=== PATIENT | male | born 1970 | race American Indian/Alaskan Native ===

== ENCOUNTER 2018-07-13 11:13 | Day surgery (SDC) | payer BC ==
[2018-07-07 08:09] VITALS: BMI 36.5
[2018-07-13 12:19] LABS: BASO # 0.02 K/mm3 (0.0-2.0); BASO % 0.3 % (0.0-3.0); EOS # 0.1 (0.0-0.7); GRAN # 4.2 (1.4-6.5); GRAN % 71.1 % (50.0-68.0); HEMOGLOBIN 12.8 g/dL (14.0-18.0); LYMPH # 1.1 (1.2-3.4); LYMPH % 18.1 % (22.0-35.0); MEAN CELL VOLUME 86.7 fl (80.0-105.0); MEAN CORPUSCULAR HEMOGLOBIN 27.8 pg (25.0-35.0); MEAN CORPUSCULAR HGB CONC 32.1 g/dl (31.0-37.0); MEAN PLATELET VOLUME 9.4 fl (7.0-11.0); MONO # 0.6 (0.1-0.6); MONO % 9.5 % (1.0-6.0); RBC 4.6 10^6/uL (3.5-6.1); RED CELL DISTRIBUTION WIDTH 12.7 % (11.5-14.5); WHITE BLOOD COUNT 5.9 10^3/uL (4.5-11.0)
[2018-07-13 12:23] LABS: INR 1.1; PROTHROMBIN TIME 12.7 SECONDS (9.4-12.5)
[2018-07-13 12:32] LABS: BLOOD UREA NITROGEN 15 mg/dL (7-21); GFR NON-AFRICAN AMERICAN > 60
[2018-07-13] MEDS ORDERED: Lidocaine 1% Inj (20ml) ONE (13:26)
[2018-07-13] MEDS ORDERED: Midazolam 2 MG/2 ML VIAL ONE (13:27)
[2018-07-13] MEDS ORDERED: Midazolam 2 MG/2 ML VIAL IVP ONE (13:30)
[2018-07-13] MEDS ORDERED: Oxycodone/Acetaminophen 5/325 mg Tab PO PRN (13:52)
[2018-07-13] MEDS ORDERED: Sodium Chloride 0.45% 1,000 ML IV SCH (14:00)
[2018-07-13 14:53] VITALS: BP 115/74; PULSE 80; RESP 20; TEMP 98
[2018-07-13 16:54] VITALS: O2SAT 98
--- NOTE | 2018-07-13 18:18 | CT ---
PROCEDURE: CT guided right ileo psoas biopsy HISTORY: Metastatic colon carcinoma. Right ileo psoas mass with increased activity on PET-CT. Evaluate for metastatic disease. PHYSICIAN(S): Harsh Atkinson MD. TECHNIQUE: The relative risks and indications of the procedure were explained to the patient and consent obtained. The patient was placed in a left decubitus position on the CT scanner and preliminary images through the lower abdomen obtained. Conscious sedation and monitoring were provided throughout the procedure by a nurse. There is a 7.5 cm low-attenuation mass involving the right ileo psoas muscle. The lateral aspect of this mass was extremely active on PET/CT imaging. A right posterior lateral approach was selected the area prepped and draped usual sterile fashion. Conscious sedation monitoring were provided throughout the procedure by a nurse. An AA 17 gauge needle was advanced into the 7.5 cm right ileo psoas mass. Its position was confirmed with CT. Multiple core biopsies were obtained. The patient tolerated the procedure well IMPRESSION: 1. CT-guided right ileo psoas mass biopsy as described above.
== END 2018-07-13 17:00 | disposition home or self-care (01) ==
LOC: SDS 11:13
PROVIDERS: ATTEND Radiology Vascular & Interventional Radiology
DX: C79.89 Secondary malignant neoplasm of other specified sites (principal); I10 Essential (primary) hypertension; Z85.038 Personal history of other malignant neoplasm of large intestine
CPT/HCPCS: 36415; 49180; 77012; 80048; 85025; 85610; 85730; 88305; 99152; 99153; J2250; J2405; J3010; J7030

== ENCOUNTER 2018-11-24 20:33 | Observation (INO) | payer BC ==
[2018-11-24 20:54] VITALS: BMI 36.2
[2018-11-24] MEDS ORDERED: Morphine 2 mg/ml ISec IVP STA ×2 (21:20→22:31)
--- NOTE | 2018-11-24 21:36 | ED PDOC ---
Arrival/HPI - General Historian: Patient, Spouse - History of Present Illness Narrative History of Present Illness (Text): 11/24/18 21:22 48 y/o male with PMH of colon CA (s/p partial colon resection, on chemo q3 weeks, right sided port) and HTN presents to the ED c/o LLQ abdominal pain x 1 day. Pain is sharp and constant with intermittent radiation to left flank. Last chemo 26 days ago, next session supposed to be last week, rescheduled to 11/30/18. Took hydrocodone last night with some relief. Associated diarrhea over the last few days, last full BM 11pm yesterday, soft, darker stools. Pt used enema today and has been having small bowel movements throughout the day. Also has had a mild intermittently productive cough over the last week. Associated inconsistent urinary flow and urinary frequency over the last 2 days. Denies fever, vomiting, headache, neck pain, back pain, headache, dizziness, chest pain, SOB, palpitations, hematuria, dysuria, testicular pain or swelling, or any other associated symptoms. Oncologist: Dr. Delaney PMD: Dr. Wilkinson <Kay Carl - Last Filed: 11/25/18 03:55> <Ross Coffman - Last Filed: 11/25/18 06:48> - General Chief Complaint: Abdominal Pain Time Seen by Provider: 11/24/18 20:41 Past Medical History - Provider Review Nursing Documentation Reviewed: Yes Primary Care Provider: Luke Wilkinson - Cardiac Hx Pacemaker: No - Neurological Hx Paralysis: No - Hematological/Oncological Hx Blood Transfusions: No Hx Blood Transfusion Reaction: No Hx Cancer: Yes Hx Chemotherapy: Yes - Musculoskeletal/Rheumatological Hx Musculoskeletal Disorders: No - Psychiatric Hx Emotional Abuse: No Hx Physical Abuse: No Hx Substance Use: No - Surgical History Other/Comment: Colon resection 2010. tumor removed from abdomen - Anesthesia Hx Anesthesia: Yes Hx Anesthesia Reactions: No Hx Malignant Hyperthermia: No - Suicidal Assessment Feels Threatened In Home Enviroment: No <Kay Carl - Last Filed: 11/25/18 03:55> Family/Social History - Physician Review Nursing Documentation Reviewed: Yes Family/Social History: No Known Family HX Smoking Status: Never Smoked Hx Alcohol Use: No Hx Substance Use: No <Kay Carl - Last Filed: 11/25/18 03:55> Allergies/Home Meds <Kay Carl - Last Filed: 11/25/18 03:55> <Ross Coffman - Last Filed: 11/25/18 06:48> Allergies/Adverse Reactions: Allergies Penicillins Allergy (Severe, Verified 11/24/18 20:54) RASH Home Medications: Home Meds Medication Instructions Recorded Confirmed Acetaminophen [Tylenol] 325 mg PO PRN PRN 07/07/18 07/07/18 Cyclobenzaprine [Cyclobenzaprine 10 mg PO HS 07/07/18 07/07/18 HCl] Hydrocodone/Ibuprofen [Hydrocodone 1 tab PO HS PRN 07/07/18 07/07/18 Bitartrate-Ibuprofen 7.5 mg-200 M] amLODIPine [Norvasc] 10 mg PO DAILY 07/07/18 07/07/18 Review of Systems - Review of Systems Constitutional: Normal. absent: Fatigue, Fevers Eyes: Normal. absent: Vision Changes ENT: Normal. absent: Sore Throat, Sinus Congestion Respiratory: Cough. absent: SOB Cardiovascular: Normal. absent: Chest Pain, Palpitations, Syncope Gastrointestinal: Abdominal Pain, Constipation, Diarrhea, Nausea. absent: Stool Changes, Vomiting, Appetite Changes, Hematochezia, Hematemesis Genitourinary Male: Frequency, Other (abnormal flow). absent: Dysuria Musculoskeletal: Normal. absent: Back Pain, Neck Pain Skin: Normal. absent: Rash Neurological: Normal. absent: Headache, Dizziness <Kay Carl - Last Filed: 11/25/18 03:55> Physical Exam Vital Signs Reviewed: Yes Vital Signs Temp Pulse Resp BP Pulse Ox 11/24/18 20:54 98.8 F 77 18 157/83 H 99 Temperature: Afebrile Blood Pressure: Normal Pulse: Regular Respiratory Rate: Normal Appearance: Positive for: Well-Appearing, Non-Toxic, Uncomfortable Pain Distress: Mild Mental Status: Positive for: Alert and Oriented X 3 - Systems Exam Head: Present: Atraumatic, Normocephalic Pupils: Present: PERRL Extroacular Muscles: Present: EOMI Conjunctiva: Present: Normal Mouth: Present: Moist Mucous Membranes Neck: Present: Normal Range of Motion. No: Meningeal Signs Respiratory/Chest: Present: Clear to Auscultation, Good Air Exchange. No: Respiratory Distress, Accessory Muscle Use Cardiovascular: Present: Regular Rate and Rhythm, Normal S1, S2, Peripheal Pulses Present Abdomen: Present: Tenderness (LLQ), Normal Bowel Sounds (hypoactive throughout). No: Distention, Peritoneal Signs Rectal: Present: Hemorrhoids (small nonthrombosed), Normal Rectal Tone. No: Occult Blood, Rectal Tenderness, Gross Blood Back: Present: Normal Inspection. No: CVA Tenderness Upper Extremity: Present: Normal Inspection, Normal ROM, NORMAL PULSES, Neurovascularly Intact, Capillary Refill < 2s. No: Cyanosis, Edema, Temperature Abnormalties Lower Extremity: Present: Normal Inspection, NORMAL PULSES, Normal ROM, Capillary Refill < 2 s. No: Edema, Temperature Abnormalties Neurological: Present: GCS=15, CN II-XII Intact, Speech Normal, Motor Func Grossly Intact, Normal Sensory Function, Gait Normal Skin: Present: Warm, Dry, Normal Color. No: Rashes Psychiatric: Present: Alert, Oriented x 3, Normal Insight, Normal Concentration, Normal Affect, Normal Mood <Kay Carl - Last Filed: 11/25/18 03:55> Vital Signs Temp Pulse Resp BP Pulse Ox 11/24/18 23:14 99.0 F 11/24/18 22:51 81 22 156/86 H 96 11/24/18 20:54 98.8 F 77 18 157/83 H 99 <Ross Coffman - Last Filed: 11/25/18 06:48> Medical Decision Making ED Course and Treatment: Initial Plan: * Labs * CXR * EKG * CT Abd/Pelvis with IV contrast * Morphine, Zofran EKG shows normal rate and rhythm with PVCS, no STEMI, nonspecific ST/T wave changes No comparison available 21:49 CBC reviewed, no leukocytosis. Mild anemia noted. 22:30 CMP unremarkable, troponin negative 00:53 CT shows left sided nephrolithiasis with hydronephrosis, right sided pneumonia, and colon malignancy with metastases to liver and retroperitoneum. Hemoccult negative on rectal exam, however limited secondary to small amount of stool in rectal vault. 01:[address] Tucker who accepted patient for inpatient remote telemetry admission with diagnosis of pneumonia and left sided obstructing nephrolithiasis, as well as colon cancer with liver and retroperitoneal metastases. Pt updated with change in disposition. Resting comfortably in stretcher with no complaints at this time, vital signs stable. ID and urology consults, pain medication, diet, and antibiotics ordered as requested by admitting attending. Pending urine. - Lab Interpretations Lab Results: 11/24/18 21:42 11/24/18 21:42 Lab Results 11/24/18 21:42: Sodium 138, Potassium 4.1, Chloride 102, Carbon Dioxide 26, Anion Gap 14, BUN 15, Creatinine 1.5, Est GFR ( Amer) 60, Est GFR (Non-Af Amer) 50, Random Glucose 103, Calcium 9.4, Total Bilirubin 0.9, AST 27, ALT 12, Alkaline Phosphatase 80, Lactate Dehydrogenase 418, Total Creatine Kinase 126, Troponin I < 0.01, Total Protein 8.6 H, Albumin 4.1, Globulin 4.4, [place] min/Globulin Ratio 0.9 L, Lipase 141 11/24/18 21:42: PT 13.8 H, INR 1.24, APTT 36.2 11/24/18 21:42: WBC 8.3 D, RBC 4.43, Hgb 12.1 L, Hct 37.4 L, MCV 84.4, MCH 27.3, MCHC 32.4, RDW 14.0, Plt Count 322, MPV 9.4, Neut % (Auto) 75.9 H, Lymph % (Auto) 12.5 L, Morton % (Auto) 10.9 H, Eos % (Auto) 0.5 L, Baso % (Auto) 0.2, Lymph # (Auto) 1.0 L, Morton # (Auto) 0.9 H, Eos # (Auto) 0.0, Baso # (Auto) 0.02, Absolute Neuts (auto) 6.33 I have reviewed the lab results: Yes Interpretation: All labs normal - RAD Interpretation Narrative RAD Interpretations (Text): EXAM: CT Abdomen and Pelvis with IV contrast FINDINGS: LUNG BASES: Posterior right lower lobe pneumonic consolidation is noted. No pleural effusions are seen. LIVER: A large 12.6 x 12.0 x 9.3 cm hypodense mass with irregular frond-like margins is seen in the right hepatic lobe compatible with advanced malignancy. GALLBLADDER AND BILE DUCTS: The gallbladder is noted to abut the hepatic malignancy. No radioopaque gallstones are seen. No biliary ductal dilatation is evident. PANCREAS: Unremarkable. SPLEEN: Unremarkable. ADRENAL GLANDS: Unremarkable. KIDNEYS, URETERS, AND BLADDER: The kidneys appear within normal limits. There is no hydronephrosis or hydroureter. A 7.1 mm obstructing calculus is lodged at the left UVJ with associated moderate left hydroureter and left hydronephrosis noted. The urinary bladder appears normal in size and configuration. Subtle perivesical haziness is noted thought compatible with cystitis. STOMACH AND BOWEL: Unremarkable appearance of the stomach. There is a given history of previous known colonic carcinoma with surgical resection; thought to be of the right hemicolon. No evidence of bowel obstruction. There is mucosal wall thickening of the small intestine with fluid in the lumen compatible with diffuse enteritis. Infectious or inflammatory etiologies are thought most likely. APPENDIX: No evidence of acute appendicitis on CT examination. PERITONEUM: No free fluid. No free air. A 6.9 x 4.8 cm ovoid shaped hypodense mass is seen along the lateral right abdominal wall compatible with malignancy. An additional 6.9 x 7.8 cm hypodense mass with irregular margins is seen in the posterior right retroperitoneal region invading the psoas muscle compatible with malignancy. An additional 7.0 x 7.0 cm hypodense malignant masses seen along the inner right pelvic wall. These masses are compatible with known colonic carcinoma for which the patient has been receiving chemotherapy. LYMPH NODES: No lymphadenopathy is evident. REPRODUCTIVE: Unremarkable as visualized. VASCULATURE: No evidence of abdominal aortic aneurysm. BONES: No aggressive appearing osseous lesion. No acute osseous pathology evident. There is evidence of advanced degenerative disc disease at L2-3, L4-5, L5-S1. IMPRESSION: 1. Multiple right lateral abdominal wall malignancy; also located along the inner right pelvic wall. There is known previous colon carcinoma with surgical resection of the right hemicolon. 2. Large hepatic metastatic malignancy as described above. 3. Diffuse enteritis. 4. 7.1 mm obstructing calculus at the left UVJ with associated moderate left hydronephrosis/hydroureter. 5. Posterior right lower lobe pneumonic consolidation. 6. Subtle perivesical haziness thought indicative of cystitis. 7. Advanced degenerative disc disease at L2-3, L4-5, L5-S1. Electronically signed on November 24, 2018 11:43:00 PM EDT by: Ronald Rice M.D., M.B.A., Certified By [employer] Trained MRI and CT Specialist Radiology Orders: 11/24/18 21:00 CHEST PORTABLE [RAD] Stat 11/24/18 21:21 ABD & PELVIS IV CONTRAST ONLY [CT] Stat Industrial Workers: Radiologist - EKG Interpretation EKG Interpretation (Text): 11/24/18 22:09 Rate 82; NSR with PVCs and fusion complexes; no STEMI, nonspecific ST/T wave changes Interpreted by ED Physician: Yes Type: 12 lead EKG - Medication Orders Current Medication Orders: Morphine Sulfate (Morphine) 2 mg IVP STAT STA Stop: 11/24/18 21:21 Ondansetron HCl (Zofran Inj) 4 mg IVP STAT STA Stop: 11/24/18 21:22 <Kay aCrl - Last Filed: 11/25/18 03:55> - Lab Interpretations Lab Results: PT 13.8 SECONDS (9.4-12.5) H 11/24/18 21:42 INR 1.24 11/24/18 21:42 APTT 36.2 Seconds (26.9-38.3) 11/24/18 21:42 Troponin I < 0.01 ng/mL 11/24/18 21:42 Total Bilirubin 0.9 mg/dL (0.2-1.3) 11/24/18 21:42 AST 27 U/L (17-59) 11/24/18 21:42 ALT 12 U/L (7-56) 11/24/18 21:42 Alkaline Phosphatase 80 U/L (38-126) 11/24/18 21:42 Total Protein 8.6 g/dL (5.8-8.3) H 11/24/18 21:42 Albumin 4.1 g/dL (3.0-4.8) 11/24/18 21:42 Globulin 4.4 gm/dL 11/24/18 21:42 Albumin/Globulin Ratio 0.9 (1.1-1.8) L 11/24/18 21:42 Lipase 141 U/L (23-300) 11/24/18 21:42 - RAD Interpretation Radiology Orders: 11/24/18 21:00 CHEST PORTABLE [RAD] Stat 11/24/18 21:21 ABD & PELVIS IV CONTRAST ONLY [CT] Stat - Medication Orders Current Medication Orders: Discontinued Medications Morphine Sulfate (Morphine) 2 mg IVP STAT STA Stop: 11/24/18 21:21 Last Admin: 11/24/18 21:59 Dose: 2 mg MAR Pain Assessment Document 11/24/18 21:59 SS (Rec: 11/24/18 22:00 SS [id number]) Pain Reassessment Is this a pain reassessment? No IVP Administration Document 11/24/18 21:59 SS (Rec: 11/24/18 22:00 [place] [id number]) Charges for Administration # of IVP Administrations 1 Morphine Sulfate (Morphine) 2 mg IVP STAT STA Stop: 11/24/18 22:32 Last Admin: 11/24/18 22:51 Dose: 2 mg MAR Pain Assessment Document 11/24/18 22:51 SS (Rec: 11/24/18 22:51 SS [place] [id number]) Pain Reassessment Is this a pain reassessment? Yes Sleep Is patient sleeping during reassessment? No Presence of Pain Presence of Pain Yes Location Upper or Lower Lower Pain Location Body Site Abdomen IVP Administration Document 11/24/18 22:51 SS (Rec: 11/24/18 22:51 SS [place] [id number]) Charges for Administration # of IVP Administrations 1 Ondansetron HCl (Zofran Inj) 4 mg IVP STAT STA Stop: 11/24/18 21:22 Last Admin: 11/24/18 22:00 Dose: 4 mg IVP Administration Document 11/24/18 22:00 SS (Rec: 11/24/18 22:00 [id number] Charges for Administration # of IVP Administrations 1 <Ross Coffman - Last Filed: 11/25/18 06:48> - PA / STUDIO CONTROL OPERATOR / Resident Statement CAROLYNE has reviewed & agrees with the documentation as recorded. CAROLYNE has examined the patient and agrees with the treatment plan. <Ross Coffman - Last Filed: 11/25/18 06:48> Disposition/Present on Arrival - Present on Arrival Any Indicators Present on Arrival: No History of DVT/PE: No History of Uncontrolled Diabetes: No Urinary Catheter: No History of Decub. Ulcer: No History Surgical Site Infection Following: None - Disposition Have Diagnosis and Disposition been Completed?: Yes Disposition Time: 01:00 <Kay Carl - Last Filed: 11/25/18 03:55> <Ross Coffman - Last Filed: 11/25/18 06:48> - Disposition Diagnosis: Pneumonia, Nephrolithiasis, Hydronephrosis, Colon cancer, Liver mass, Retrope ritoneal mass Disposition: HOSPITALIZED Patient Problems: Current Active Problems Problem Status Onset Colon cancer Acute Hydronephrosis Acute Liver mass Acute Nephrolithiasis Acute Pneumonia Acute Retroperitoneal mass Acute Condition: STABLE
[2018-11-24 21:46] LABS: BASO # 0.02 K/mm3 (0.0-2.0); BASO % 0.2 % (0.0-3.0); EOS % 0.5 % (1.5-5.0); HEMOGLOBIN 12.1 g/dL (14.0-18.0); LYMPH % 12.5 % (22.0-35.0); MEAN CELL VOLUME 84.4 fl (80.0-105.0); MEAN CORPUSCULAR HEMOGLOBIN 27.3 pg (25.0-35.0); MEAN CORPUSCULAR HGB CONC 32.4 g/dl (31.0-37.0); MEAN PLATELET VOLUME 9.4 fl (7.0-11.0); MONO # 0.9 (0.1-0.6); MONO % 10.9 % (1.0-6.0); RBC 4.43 10^6/uL (3.5-6.1); WHITE BLOOD COUNT 8.3 10^3/uL (4.5-11.0)
[2018-11-24 21:55] LABS: INR 1.24; PARTIAL THROMBOPLASTIN TIME 36.2 Seconds (26.9-38.3); PROTHROMBIN TIME 13.8 SECONDS (9.4-12.5)
[2018-11-24 22:00] LABS: ALB/GLOB RATIO 0.9 (1.1-1.8); ALBUMIN 4.1 g/dL (3.0-4.8); ALT/SGPT 12 U/L (7-56); AST/SGOT 27 U/L (17-59); BLOOD UREA NITROGEN 15 mg/dL (7-21); CALCIUM 9.4 mg/dL (8.4-10.5); GFR NON-AFRICAN AMERICAN 50; LIPASE 141 U/L (23-300)
[2018-11-24 22:11] LABS: TROPONIN I < 0.01 ng/mL
[2018-11-24] MEDS ORDERED: Iohexol 350 MG/100 ML VIAL ONE (22:27)
[2018-11-25] MEDS ORDERED: Morphine 2 mg/ml ISec IVP STA (00:05)
[2018-11-25] MEDS ORDERED: levoFLOXacin 750 MG TAB PO STA (00:06)
[2018-11-25] MEDS ORDERED: levoFLOXacin 750 mg in D5W 150 ML BAG IVPB STA (00:45)
[2018-11-25] MEDS ORDERED: Oxycodone/Acetaminophen 5/325 mg Tab PO PRN (01:08)
[2018-11-25] MEDS ORDERED: Sodium Chloride 0.9% 1,000 ML IV STA (01:08)
[2018-11-25 08:34] VITALS: RESP 20
[2018-11-25 09:37] VITALS: BP 123/73; TEMP 98; O2SAT 97
--- NOTE | 2018-11-25 11:25 | RAD ---
Date of service: 11/24/2018 HISTORY: abd pain COMPARISON: No prior. TECHNIQUE: 1 view obtained. FINDINGS: LUNGS: No active pulmonary disease. PLEURA: No significant pleural effusion identified, no pneumothorax apparent. CARDIOVASCULAR: No aortic atherosclerotic calcification present. Normal cardiac size. No pulmonary vascular congestion. OSSEOUS STRUCTURES: Mild spinal degenerative changes. VISUALIZED UPPER ABDOMEN: Normal. OTHER FINDINGS: Right internal jugular access chest port with tip in the distal SVC IMPRESSION: No active disease.
--- NOTE | 2018-11-25 11:52 | CARD ---
APPROVED REPORT Date of service: 11/24/2018 EKG Measurement Heart [id number] CT 130P-4 [id number] <Conclusion> Sinus rhythm with frequent and consecutive premature ventricular complexes and fusion complexes Abnormal ECG
--- NOTE | 2018-11-25 12:13 | CT ---
Date of service: 11/24/2018 PROCEDURE: CT Abdomen and Pelvis with contrast HISTORY: LLQ pain, nausea, h/o Colon CA s/p resection COMPARISON: CT scan of the chest, abdomen and pelvis dated 08/10/2013 TECHNIQUE: Contrast dose: 100 mL Omnipaque 350 Radiation dose: Total exam DLP = 1245.03 mGy-cm. This CT exam was performed using one or more of the following dose reduction techniques: Automated exposure control, adjustment of the mA and/or kV according to patient size, and/or use of iterative reconstruction technique. FINDINGS: LOWER THORAX: Partially imaged chest port catheter with tip in the distal SVC. Bibasilar atelectasis. Punctate left lower lobe calcified granuloma. LIVER: Hepatic steatosis. Large lobular hypodense mass occupying much of the right hepatic lobe measuring 13.7 x 8.9 x 12.3 cm and is inseparable from the gallbladder. Punctate foci of calcification seen scattered in the mass. Additional 6.2 x 2.6 x 4.9 cm low-density mass along the margin of the inferior right hepatic lobe laterally. No gross lesion or ductal dilatation. GALLBLADDER AND BILE DUCTS: Unremarkable. PANCREAS: Unremarkable. No gross lesion or ductal dilatation. SPLEEN: Unremarkable. ADRENALS: Unremarkable. No mass. KIDNEYS AND URETERS: Left ureterovesicular junction 7.1 mm calculus causing moderate left hydroureteronephrosis. No solid mass. VASCULATURE: Unremarkable. No aortic aneurysm. No aortic atherosclerotic calcification or mural plaque present. BOWEL: Prior right hemicolectomy. No obstruction. No gross mural thickening. APPENDIX: Prior appendectomy. PERITONEUM: 7.8 x 7.0 x 11.0 cm low-density mass within the right psoas muscle with foci of calcification. Additional low-density area in the right pericolic gutter measuring approximately 5.9 x 4.6 x 6.5 cm. Additional low density in the right pericolic gutter almost in contiguity with right psoas mass measures 7.3 x 5.8 x 8.7 cm and also contains foci of calcification. Small right fat containing inguinal hernia. No free fluid. No free air. LYMPH NODES: Unremarkable. No enlarged lymph nodes. BLADDER: Unremarkable. REPRODUCTIVE: Unremarkable. BONES: Multilevel spinal degenerative changes. No acute fracture. OTHER FINDINGS: None. IMPRESSION: Left ureterovesicular junction 7.1 mm calculus causing moderate left hydroureteronephrosis. Large 13.7 x 8.9 x 12.3 cm right hepatic lobe mass/metastasis inseparable from the gallbladder for which gallbladder invasion cannot be excluded. Low-density masses in the right psoas and right pericolic gutter as above described. Foci of calcification within all masses raise the possibility of mucinous type adenocarcinoma. Correlate with known pathology from patient's history of colon cancer.
[2018-11-25] MEDS ORDERED: Meropenem IV 1 gm in NS 1 GM/50 ML BAG IVPB SCH (14:00)
--- NOTE | 2018-11-25 15:33 | CT ---
Date of service: 11/25/2018 PROCEDURE: CT Chest, Abdomen and Pelvis without intravenous contrast HISTORY: re-eval PNA and nephrolithiasis COMPARISON: CT scan of the abdomen pelvis performed 11/24/2018; CT scan of the chest, abdomen pelvis dated 08/10/2013. TECHNIQUE: Radiation dose: Total exam DLP = 927.81 mGy-cm. This CT exam was performed using one or more of the following dose reduction techniques: Automated exposure control, adjustment of the mA and/or kV according to patient size, and/or use of iterative reconstruction technique. FINDINGS: visualized thyroid is unremarkable. Heart size is normal. Coronary arterial and valvular calcifications are present. The lungs are clear without focal consolidation, pleural effusion or suspicious pulmonary nodule/mass. Left lower lobe subsegmental linear atelectasis/scarring is present. No mediastinal, hilar or axillary adenopathy is present. Right internal jugular access chest port is present with catheter tip in distal SVC. There is diffuse hepatic steatosis. Delayed left nephrogram is present. Hydroureteronephrosis has resolved due to passage of the previously seen left ureterovesicular junction calculus. Excreted intravenous contrast is seen within both renal collecting systems. Large low-density hepatic mass, right pericolic gutter masses and right psoas muscle mass are unchanged. Remainder of the findings are unchanged. IMPRESSION: No evidence of pneumonia. Resolution of left hydroureteronephrosis due to passage of ureterovesicular junction calculus. Delayed left nephrogram likely due to transiently impaired unilateral renal function from obstructive calculus. No other significant interval change.
--- NOTE | 2018-11-25 16:14 | HP ---
DATE OF EXAM: 11/25/2018 HISTORY OF PRESENT ILLNESS: The patient is 48-year-old male, who came to emergency room because of increasing left flank pain. He states that he is having pain for last two days, but got worse last night, then prompted him to come to emergency room. The patient states pain was colicky and he ended up passing stone this morning, since then he feels much relief. The patient does complain of intermittent diarrhea and that he attributes to chemotherapy that he is recently receiving for recurrent colon cancer. Denies any fever or chills. No nausea or vomiting. Does feel hungry. PAST MEDICAL HISTORY: Significant for colon cancer that was diagnosed in 2010. The patient has colon resection. He states that 17 cm tumor was removed. He has been on chemotherapy since then. He states that he had surgery in 2010, but then he has recurrence of his tumor and has been getting chemotherapy for the last few weeks. He does have history of hypertension, intermittent diarrhea, and chronic anemia. ALLERGIES: HE IS ALLERGIC TO PENICILLIN. MEDICATIONS: At home, he is on cyclobenzaprine, ibuprofen, hydrocodone, amlodipine, and acetaminophen. SOCIAL HISTORY: He is , lives with his family. Denies smoking, drinking, or alcohol use. PHYSICAL EXAMINATION: GENERAL: He is awake and alert; able to communicate. VITAL SIGNS: He is afebrile, pulse 97, respiration 20, and blood pressure 123/73. LUNGS: Bilateral fair airflow. No rhonchi or crackle. HEART: S1 and S2 audible. ABDOMEN: Soft and nontender. No rebound. No guarding. NEUROLOGIC: He is awake and alert; able to communicate. LABORATORY DATA: WBC is 8.3, hemoglobin 10, hematocrit 37, and platelet 322. PT 13.8 and INR 1.24. Chemistry; sodium 138, potassium 4.1, chloride 102, CO2 of 26, BUN 15, creatinine 1.5, blood sugar 103, and troponin 0.01. He had CT of the abdomen and pelvis done that is pending; however, the patient passed 7 mm stone this morning. IMPRESSION: He has been feeling well right now. He has no cough. No congestion. PLAN: I will order for CT of the abdomen and pelvis and also CT of the chest. If there is no infiltrate and the patient has passed the stone, then he can be discharged later on today. Mikhail Tucker MD [facility] # [id number]
[2018-11-25 18:21] VITALS: PULSE 83
--- NOTE | 2018-11-28 06:32 | CON ---
DATE: 11/25/2018 CHIEF COMPLAINT: Left-sided abdominal pain x1 day duration. HISTORY OF PRESENT ILLNESS: This is a 48-year-old male with past medical history significant for colon cancer and has had colon resection, has had chemotherapy every 3 weeks, has a right-sided port, also with history of hypertension. He was admitted with left-sided abdominal pain and the patient denies fevers and abdominal pain he states is severe colicky in nature. No diarrhea or constipation. No dysuria and no chest pain, shortness of breath, or cough. REVIEW OF SYSTEMS: A 12-point review of system is performed. PAST MEDICAL HISTORY: Significant for colon cancer and hypertension. PAST SURGICAL HISTORY: Port-A-Cath placement. MEDICATIONS AT HOME: Revealed the patient to be on amlodipine, ibuprofen, cyclobenzaprine. PHYSICAL EXAMINATION: GENERAL: The patient is in bed. Answering questions comfortably. VITAL SIGNS: Temperature of 98, heart rate of 97, respiratory rate of 22, blood pressure is 140/70. HEENT: Unremarkable. NECK: Supple. LUNGS: Decreased breath sounds. HEART: Normal S1 and S2. ABDOMEN: Soft and nontender. No organomegaly. No rebound. No guarding. No masses. LABORATORY DATA: Reveals a white count of 8.3, hemoglobin of 12. Coagulation is noted. Chemistries reveal the BUN of 16, creatinine of 1.5. Unable to find urinalysis. The patient had a chest x-ray, no official reading is available. The patient had a CAT scan of the abdomen and pelvis, no official reading available. Although the patient states he was told he has a kidney stone, it appears to be a large hypodense mass in the liver margins compatible with advanced malignancy, also a posterior right lower lobe pneumonic consolidation is noted. On the CAT scan of the abdomen, multiple right lateral abdominal wall malignancies located along the inner right pelvic wall. Large hepatic metastatic malignancy, 7.1 mm obstructing calculus at the left UV junction with hydronephrosis and a posterior right lower lobe consolidation is noted on official reading. The patient also had a creatinine of 1.5, in 07/2018 his creatinine was 0.9. There is a penicillin allergy with questionable rash not type 1. ASSESSMENT AND PLAN: This is a 48-year-old male with history of colon cancer, colon resection, chemotherapy, hypertension, now presenting with abdominal pain, tachycardia, dyspnea with severe sepsis with gastrointestinal source most likely metastatic diseased liver, questionable prolonged with acute kidney injury, creatinine has changed from 0.9 to 1.5 with left-sided healthcare-associated pneumonia. We will treat the patient with meropenem, doxycycline, order blood cultures, urine cultures, sputum cultures, nasal methicillin-resistant Staphylococcus aureus screen and order human immunodeficiency virus test because of his age and urine Legionella antigen, procalcitonin in a patient with obstructive kidney stone. We will order a urinalysis and urine culture and we will make further recommendations up on availability of initial results. We will follow closely with you. Herve Salguero MD
== END 2018-11-25 18:40 | disposition home or self-care (01) ==
LOC: ED 20:33 → INTOOBSV 11-25 00:55 → ERH 11-25 00:55 → 3RSO 11-25 04:03
PROVIDERS: ADMIT Internal Medicine; ATTEND Internal Medicine
DX: N13.6 Pyonephrosis (principal); K52.9 Noninfective gastroenteritis and colitis, unspecified; C18.9 Malignant neoplasm of colon, unspecified; C78.7 Secondary malignant neoplasm of liver and intrahepatic bile duct; I10 Essential (primary) hypertension; M51.36 Other intervertebral disc degeneration, lumbar region; Z90.49 Acquired absence of other specified parts of digestive tract
CPT/HCPCS: 36415; 71045; 71250; 74176; 74177; 80053; 82550; 83615; 83690; 84145; 84484; 85025; 85610; 85730; 87040; 87389; 93005; 96374; 96375; 96376; 99285; G0378; J2270; J2405; J7030; Q9967